=== PATIENT | male | born 1960 | race Caucasian/White ===

== ENCOUNTER 2020-03-12 00:59 | Outpatient (CLI) | payer BC, SELFPAY ==
[2020-03-12 19:19] LABS: SARS-CoV-2 RNA PCR Negative
== END 2020-03-12 01:00 | disposition home or self-care (01) ==
LOC: ANHCOVIDDT 00:59
PROVIDERS: PCP Family Medicine Adolescent Medicine; Visit Provider Internal Medicine Gastroenterology
DX: Z01.818 Encounter for other preprocedural examination (principal); Z11.59 Encounter for screening for other viral diseases
CPT/HCPCS: 87635; C9803; U0003

== ENCOUNTER 2020-03-14 01:19 | Day surgery (SDC) | payer BC, SELFPAY ==
[2020-03-04 13:05] VITALS: BMI 26.9
[2020-03-14 06:42] VITALS: BP 115/72; PULSE 58; RESP 18; TEMP 36.2; O2SAT 99; BMI 25.9
[2020-03-14] MEDS: LACTATED RINGERS 1,000 ML 150 ML IV CONT (06:54)
--- NOTE | 2020-03-14 07:04 | WPDANESEPPF ---
Anes - Initial Pre Proc Eval Procedure: Operation Date: 03/14/20 08:00 Proposed Procedures p Screening Colonoscopy - Jimmy Porter MD Date/Time: 03/14/20 07:04 Surgeon: Jimmy Porter MD Pre Op Diagnosis: Neoplasm Screening, Hx of Colon Polyps Patient Data Age: 59 Gender: M Height: 1.78 m Weight: 82.2 kg Last Vital Signs Temp 36.2 C L 03/14/20 06:42 Pulse 58 L 03/14/20 06:42 Resp 18 03/14/20 06:42 BP 115/72 03/14/20 06:42 Pulse Ox 99 03/14/20 06:42 Allergies Allergy/AdvReac Type Severity Reaction Status Date / Time No Known Allergies Allergy Verified 03/14/20 06:41 Home Medications Medication Instructions Recorded Confirmed Type diclofenac sodium 75 mg PO DAILY 03/04/20 03/04/20 History loratadine [Claritin] 10 mg PO DAILY 03/04/20 03/04/20 History atorvastatin 40 mg PO DAILY 03/14/20 03/14/20 History Patient hx anesthesia problems: none Family hx anesthesia problems: none PMFSH Past Medical History Medical History (Updated 03/14/20 @ 07:05 by Percy Arroyo MD) Cancer TESTICULAR Hemorrhoids Hyperlipidemia Family History Family History (Updated 03/12/16 @ 23:19 by DOCTOR UNKNOWN) Sibling Hypertension Mother Family history of malignant neoplasm of breast in first degree relative Social History Social History Alcohol intake: current Anes - Eval Final PreProcedure Day of Procedure 03/14/20 07:04 Patient weight: overweight Heart: regular rate and rhythm Lungs: clear to auscultation and normal air movement Airway: Mallampati scale class II Neurological: alert and oriented Last oral intake: >/= 8 hours ASA classification: II Emergent: no Anesthetic plan: proceed Anesthesia type and monitoring: general GIVS Informed Consent: The patient's anesthetic plan and its attendant risks and benefits were discussed with the patient/family/POA. Questions were solicited and answers provided to the satisfaction of the patient/family/POA.
--- NOTE | 2020-03-14 07:54 | WPDGICN ---
Assessment and Plan Assessment and plan (1) History of colon polyps: Code(s): Z86.010 - Personal history of colonic polyps Status: Acute Assessment and Plan: Plan is for surveillance colonoscopy now on at least at 5 year intervals in the future. Patient has had colon polyps in the past his brother also has colon polyps. Further recommendations will be given after colonoscopy. (2) Family history of colonic polyps: Code(s): Z83.71 - Family history of colonic polyps Status: Acute (3) Cancer: Code(s): C80.1 - Malignant (primary) neoplasm, unspecified Status: Acute GI Consult Note Consult date/time: 03/14/20 07:54 HPI: Lenny Alcantara is a 59 year old male Seen in evaluation at the request of Dr. Hans Stephen. Patient presents for neoplasia screening colonoscopy. Patient does have a prior history of colon polyps. On 2 previous colonoscopies. He states his current weight appetite bowel movements are normal. He denies abdominal pain. He has had no blood in his stools. His weight has remained stable. Family history is significant his brother his some had multiple colon polyps apparently also had esophageal polyps. Patient is brother requires exams on an annual basis. Review of Systems Review of Systems: All systems reviewed & are unremarkable except as noted in HPI and below PMFSH Past Medical History Medical History Cancer TESTICULAR Hemorrhoids Hyperlipidemia Family History Family History Sibling Hypertension Mother Family history of malignant neoplasm of breast in first degree relative Social History Social History Alcohol intake: current Meds Home Medications and Allergies Home Medications Medication Instructions Recorded Confirmed Type diclofenac sodium 75 mg PO DAILY 03/04/20 03/04/20 History loratadine [Claritin] 10 mg PO DAILY 03/04/20 03/04/20 History atorvastatin 40 mg PO DAILY 03/14/20 03/14/20 History Allergies Allergy/AdvReac Type Severity Reaction Status Date / Time No Known Allergies Allergy Verified 03/14/20 06:41 Vital Signs Vital Signs - 24 hr 03/14/20 06:42 Temperature 97.2 F L Pulse Rate 58 L Respiratory Rate 18 Blood Pressure 115/72 Pulse Oximetry 99 Exam Narrative: Exam Narrative: Physical exam reveals patient to be alert. Vital signs stable. HEENT exam unremarkable. Lungs are clear to auscultation and percussion. Heart is without murmur or extra sounds. Abdominal exam bowel sounds are present soft nontender with no hepatosplenomegaly. Digital external rectal exam is normal.
[2020-03-14 08:18] VITALS: BP 93/55; PULSE 55; RESP 20; O2SAT 98
[2020-03-14 08:28] VITALS: BP 104/64; PULSE 53; RESP 20; O2SAT 98
[2020-03-14 08:38] VITALS: BP 117/77; PULSE 54; RESP 19; O2SAT 100
== END 2020-03-14 08:44 | disposition home or self-care (01) ==
PROVIDERS: PCP Family Medicine Adolescent Medicine; Visit Provider Internal Medicine Gastroenterology
PROC: 0DJD8ZZ Inspection of Lower Intestinal Tract, Via Natural or Artificial Opening Endoscopic (ICD-10-PCS; CPT 45378; principal; 2020-03-14 08:00)
DX: Z12.11 Encounter for screening for malignant neoplasm of colon (principal); K57.30 Diverticulosis of large intestine without perforation or abscess without bleeding; K64.8 Other hemorrhoids; Z86.010 Personal history of colon polyps; Z83.71 Family history of colonic polyps; E78.5 Hyperlipidemia, unspecified; Z85.47 Personal history of malignant neoplasm of testis
CPT/HCPCS: 45378; J2704; J7120

== ENCOUNTER → 2021-04-14 01:59 | Outpatient (CLI) | payer BC, SELFPAY ==
[2021-04-14 19:54] LABS: SARS-CoV-2 RNA PCR Negative
== END ==
PROVIDERS: PCP Family Medicine Adolescent Medicine; Visit Provider Family Medicine Adolescent Medicine
DX: Z20.822 Contact with and (suspected) exposure to COVID-19 (principal)
CPT/HCPCS: C9803; U0003; U0005

== ENCOUNTER 2023-10-31 07:31 | Outpatient (CLI) | payer MEDICARE, SELFPAY ==
--- NOTE | ~2023-10-31 | CT_ITS ---
CT Scan of the Chest without Contrast: Clinical Indication: Lung cancer screening, personal history of nicotine dependence Technique: Contiguous sections were acquired throughout the chest without intravenous contrast. Dose reduction technique was used on this scan by utilizing automated exposure control and iterative recon struction technique. The dose-length product (DLP) was 110.24 mGy-cm. Findings: There is no evidence of any significant mediastinal, hilar or axillary lymphadenopathy. Coronary marybel ry calcifications are present. There is no evidence of pleural or pericardial effusion. There is discoid atelectasis towards the lingula. No pulmonary nodule evident. Images through the upper abdomen reveal no abnormalities. Impression: Lung RADS 1: Negative. 12 month follow-up screening CT advised. Reviewed, dictated and finalized at location . Impression: Lung RADS 1: Negative. 12 month follow-up screening CT advised.
== END 2023-10-31 07:32 | disposition home or self-care (01) ==
PROVIDERS: PCP Family Medicine Adolescent Medicine; Visit Provider Nurse Practitioner Family
DX: Z12.2 Encounter for screening for malignant neoplasm of respiratory organs (principal); Z87.891 Personal history of nicotine dependence; E78.00 Pure hypercholesterolemia, unspecified
CPT/HCPCS: 71271

== ENCOUNTER 2025-04-18 01:24 | Day surgery (SDC) | payer MEDICARE, SELFPAY ==
[2025-04-08 09:04] VITALS: BMI 25.9
--- OUTSIDE RECORDS SUMMARY | 2025-04-18 01:27 | XMS_ITS | Clinical Summary ---
Author Organization [facility] Address [address] Attn: Epic Prelude ADT JEF BHAKTA [id number] Care Team Providers Care Biogeographer Name Role Phone Unavailable Primary Care Provider Unavailabl e Allergies No known active allergies Medications atorvastatin (LIPITOR) 40 mg tablet Take 1 Tablet (40 mg) by mouth daily. 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 03/10/2023 Active Immunizations Immunization Administration Dates Next Due INFLUENZA VACCINE QUADRIVALENT 6 MOS UP PF IM Social History Tobacco Use Types Packs/Day Years Used Date Smoking Tobacco: Never Assessed Sex and Gender Information Value Date Recorded Sex Assigned at Not on file Legal Sex Male 10:48 PM CDT Gender Identity Not on file Sexual Orientation Not on file Plan of Treatment Health Maintenance Due Date Last Done Comments DTAP/TDAP/TD VACCINES (1 - Tdap) 1977 COLORECTAL SCREENING 2003 Colorectal Cancer Screening 2003 FIT-DNA Q 3 years 2003 FIT/FOBT Q 1 year 2003 Flex Sig/CT Colonography Q 5 years 2003 PNEUMOCOCCAL VACCINE 50+ YEARS (1 of 1 - PCV) 03/17/20 08 ZOSTER VACCINE (1 of 2) 2008 INFLUENZA VACCINE (#1) 2025 05/26/2022 RSV VACCINE (60+ or ) (1 - 1-dose 75+ series) 2033 Insurance RX [employer] (INTERNAL) [facility] [employer] Medicare Part D
[2025-04-18 07:43] VITALS: BP 109/68; PULSE 65; RESP 18; TEMP 35.5; O2SAT 97
[2025-04-18] MEDS: LACTATED RINGERS 1,000 ML 150 ML IV CONT (07:56)
--- NOTE | 2025-04-18 08:16 | WPDANESEPPF ---
Anes - Initial Pre Proc Eval Procedure: Operation Date: 04/18/25 09:00 Proposed Procedures p Screening Colonoscopy - Balwinder Glass MD Date/Time: 04/18/25 08:16 Surgeon: Balwinder Glass MD Pre Op Diagnosis: Personal history of colon polyps, unspecified Patient Data Age: 65 Gender: M Height: 1.78 m Weight: 81.8 kg Last Vital Signs Temp 96 F L 04/18/25 07:43 Pulse 65 04/18/25 07:43 Resp 18 04/18/25 07:43 BP 109/68 04/18/25 07:43 Pulse Ox 97 04/18/25 07:43 O2 Del Method Room Air 04/18/25 07:43 Allergies Allergy/AdvReac Type Severity Reaction Status Date / Time No Known Allergies Allergy Verified 04/18/25 07:42 Home Medications ?Medication ?Instructions ?Recorded ?Confirmed ?Type loratadine 10 mg tablet (Claritin) 10 mg PO DAILY 03/04/20 04/18/25 History atorvastatin 40 mg tablet 40 mg PO DAILY #90 tabs 02/20/25 04/18/25 Rx Patient hx anesthesia problems: none Family hx anesthesia problems: none Results Review: All pre-operative results and documents have been reviewed as part of the pre-operative evaluation. [facility] Past Medical History Medical History Right knee pain Pes anserine bursitis Hx of testicular cancer (1988) History of colon polyps Hemorrhoids Surgical History Surgical History History of melanoma excision (12/2021) Hx of hemorrhoidectomy (2013) Family History Family History Sibling Hypertension Rheumatoid arthritis Mother Family history of malignant neoplasm of breast in first degree relative Breast cancer Father Hypertension Social History Social History (Updated 04/01/25 @ 10:22 by Paty Solo) Smoking status: Current some day smoker Tobacco type: cigarettes Smoking end date: 07/15/21 Alcohol intake: current Drinks per week: 5 Alcohol use details: Weekends 3-4 beers Substance use: never Lack of Transportation: No Lack of Food: Never True Current Housing: I Have Housing Concerned About Future Housing: No Difficulty Paying Gas/Electric Bills: No Difficulty Paying for Meds: No Currently Unemployed: No Education: Master's Degree or Higher Difficulty w/ Childcare or Family Care: No Living arrangements: with family Additional living arrangements comments: With . Occupation/Education: retired Gender identity (if verbalized by the patient): Male Brant Billingsley Final PreProcedure Day of Procedure 04/18/25 08:16 Patient weight: normal Heart: regular rate and rhythm Lungs: clear to auscultation Airway: Mallampati scale class II Neurological: alert and oriented Last oral intake: >/= 8 hours ASA classification: III Emergent: no Anesthetic plan: proceed Anesthesia type and monitoring: general GIVS and standard monitoring Results Review: All pre-operative results and documents have been reviewed as part of the pre-operative evaluation. Informed Consent: The patient's anesthetic plan and its attendant risks and benefits were discussed with the patient/family/POA. Questions were solicited and answers provided to the satisfaction of the patient/family/POA.
--- NOTE | 2025-04-18 09:16 | PM.IMHP ---
H&P: HPI History of Present Illness Date/Time: 04/18/25 09:16 Chief Complaint: History of colon polyps Narrative: The patient has a history of colonic polyps, the last colonoscopy was approximately 5 years ago. In addition, his brother has colonic polyps as well. Review of Systems Review of Systems: All systems reviewed & are unremarkable except as noted in HPI and below PMFSH Past Medical History Medical History Right knee pain Pes anserine bursitis Hx of testicular cancer (1988) History of colon polyps Hemorrhoids Surgical History Surgical History History of melanoma excision (12/2021) Hx of hemorrhoidectomy (2013) Family History Family History Sibling Hypertension Rheumatoid arthritis Mother Family history of malignant neoplasm of breast in first degree relative Breast cancer Father Hypertension Social History Social History (Updated 04/01/25 @ 10:22 by Paty Solo) Smoking status: Current some day smoker Tobacco type: cigarettes Smoking end date: 07/15/21 Alcohol intake: current Drinks per week: 5 Alcohol use details: Weekends 3-4 beers Substance use: never Lack of Transportation: No Lack of Food: Never True Current Housing: I Have Housing Concerned About Future Housing: No Difficulty Paying Gas/Electric Bills: No Difficulty Paying for Meds: No Currently Unemployed: No Education: Master's Degree or Higher Difficulty w/ Childcare or Family Care: No Living arrangements: with family Additional living arrangements comments: With . Occupation/Education: retired Gender identity (if verbalized by the patient): Male Meds Home Medications and Allergies Home Medications ?Medication ?Instructions ?Recorded ?Confirmed ?Type loratadine 10 mg tablet (Claritin) 10 mg PO DAILY 03/04/20 04/18/25 History atorvastatin 40 mg tablet 40 mg PO DAILY #90 tabs 02/20/25 04/18/25 Rx Allergies Allergy/AdvReac Type Severity Reaction Status Date / Time No Known Allergies Allergy Verified 04/18/25 07:42 Vital Signs Vital Signs - 24 hr 04/18/25 07:43 Temperature 96 F L Pulse Rate 65 Respiratory Rate 18 Blood Pressure 109/68 Pulse Oximetry 97 Oxygen Delivery Room Air Exam Const: General: cooperative and healthy appearing Resp: Effort & Inspection: normal respiratory effort and able to speak in complete sentences Auscultation: clear to auscultation bilaterally Cardio: Rate: regular rate Rhythm: regular rhythm GI: Inspection: normal to inspection GI Palp: No No hepatosplenomegaly present Auscultation: normal bowel sounds Rectal Exam: deferred Skin: General skin exam: normal color Psych: Appearance: grossly normal Mental Status: mental status grossly normal Assessment and Plan Assessment and plan (1) Family history of colonic polyps: Code(s): Z83.71 - Family history of colonic polyps Status: Acute Assessment and Plan: The patient is deemed a good candidate for the procedure. Consent signed. Will proceed.
[2025-04-18 09:38] VITALS: BP 91/59; PULSE 66; RESP 26; O2SAT 99
[2025-04-18 09:48] VITALS: BP 97/60; PULSE 60; RESP 19; O2SAT 99
[2025-04-18 09:58] VITALS: BP 114/64; PULSE 63; RESP 29; O2SAT 100
== END 2025-04-18 10:09 | disposition home or self-care (01) ==
PROVIDERS: PCP Family Medicine Adolescent Medicine; Referring Provider Family Medicine Adolescent Medicine; Visit Provider Internal Medicine Gastroenterology
PROC: 0DJD8ZZ Inspection of Lower Intestinal Tract, Via Natural or Artificial Opening Endoscopic (ICD-10-PCS; CPT 45378; principal; 2025-04-18 09:00)
DX: Z12.11 Encounter for screening for malignant neoplasm of colon (principal); K57.30 Diverticulosis of large intestine without perforation or abscess without bleeding; K64.8 Other hemorrhoids; Z86.0100 Personal history of colon polyps, unspecified; Z87.891 Personal history of nicotine dependence; Z83.719 Family history of colon polyps, unspecified
CPT/HCPCS: G0105; J2003; J2704; J7120